=== PATIENT | male | born 1995 | race Caucasian/White ===

== ENCOUNTER 2018-02-09 12:43 | Emergency (ER) | payer OTHER ==
[~2018-02-09] VITALS: Ht 177.8 cm; Wt 68.0 kg
[~2018-02-09 12:43] MED LIST: ALPRAZOLAM2 MG; NOHOMEMEDICATIONS; PENICILLIN VK500 M1 PO; PREDNISONE 10 M10 MG PO; ZOFRAN4 MG PO
[2018-02-09] MEDS ORDERED: IBU600 MG PO (12:59)
[2018-02-09] MEDS ORDERED: PENICILLIN VK500 M1 PO (12:59)
[2018-02-09 13:08] VITALS: BP 123/76
== END 2018-02-09 13:09 | disposition home or self-care (01) ==
LOC: M.ERS 12:43
DX: K04.7 Periapical abscess without sinus (principal); F41.9 Anxiety disorder, unspecified; F32.9 Major depressive disorder, single episode, unspecified; Z88.1 Allergy status to other antibiotic agents; Z88.2 Allergy status to sulfonamides

== ENCOUNTER 2018-02-11 05:49 | Emergency (ER) | payer OTHER ==
[~2018-02-11] VITALS: Ht 182.9 cm; Wt 68.0 kg
[~2018-02-11 05:49] MED LIST changes: +IBU600 MG PO
[2018-02-11 07:04] LABS: CALCIUM 9.4 mg/dL (8.5-10.1); POTASSIUM 3.8 mmol/L (3.5-5.1)
[2018-02-11 07:09] LABS: ALBUMIN 4.2 g/dL (3.4-5.0); TOTAL BILIRUBIN 0.7 mg/dL (<0.1-1.0); TOTAL PROTEIN 8.3 g/dL (6.4-8.2)
[2018-02-11] MEDS ORDERED: NORCO 5-325 TA1 EACH PO (08:36)
[2018-02-11 08:47] VITALS: BP 129/70
== END 2018-02-11 08:49 | disposition home or self-care (01) ==
LOC: M.ERS 05:49
PROVIDERS: Personal Emergency Response Attendant
DX: K04.7 Periapical abscess without sinus (principal); F41.9 Anxiety disorder, unspecified; F32.9 Major depressive disorder, single episode, unspecified; Z88.2 Allergy status to sulfonamides; Z88.1 Allergy status to other antibiotic agents; F17.210 Nicotine dependence, cigarettes, uncomplicated

== ENCOUNTER 2018-10-26 20:30 | Emergency (ER) | payer OTHER ==
[~2018-10-26] VITALS: Ht 182.9 cm; Wt 68.0 kg
[~2018-10-26 20:30] MED LIST changes: +NORCO 5-325 TA1 EACH PO
[2018-10-26] MEDS ORDERED: IBUPROFEN 800800 MG PO (21:06)
[2018-10-26] MEDS ORDERED: CYCLOBENZAPRINE10 MG PO (21:06)
[2018-10-26 21:30] VITALS: BP 123/69
== END 2018-10-26 21:25 | disposition home or self-care (01) ==
LOC: M.ERS 20:30
DX: S33.5XXA Sprain of ligaments of lumbar spine, initial encounter (principal); S83.8X1A Sprain of other specified parts of right knee, initial encounter; F17.200 Nicotine dependence, unspecified, uncomplicated; F41.9 Anxiety disorder, unspecified; F32.9 Major depressive disorder, single episode, unspecified; Z88.1 Allergy status to other antibiotic agents; Z88.2 Allergy status to sulfonamides; X50.1XXA Overexertion from prolonged static or awkward postures, initial encounter; Y92.89 Other specified places as the place of occurrence of the external cause; Y93.89 Activity, other specified; Y99.8 Other external cause status

== ENCOUNTER 2018-12-29 02:07 | Emergency (ER) | payer OTHER ==
[~2018-12-29] VITALS: Ht 177.8 cm; Wt 64.0 kg
[~2018-12-29 02:07] MED LIST changes: +CYCLOBENZAPRINE10 MG PO; +IBUPROFEN 800800 MG PO
[2018-12-29 03:09] LABS: ABSOLUTE LYMPHOCYTES 1.9 thou/uL (0.8-5.3); ABSOLUTE MONOCYTES 0.9 thou/uL (0.0-1.2); ABSOLUTE NEUTROPHILS 4.8 thou/uL (1.6-8.1); BASOPHILS 0.5 %; EOSINOPHILS 0.6 %; HEMATOCRIT 45.3 % (42.0-52.0); HEMOGLOBIN 15.6 gm/dL (14.0-18.0); LYMPHOCYTES 24.1 %; MCHC 34.5 g/dL (28.0-37.0); MCV 92.8 fL (80.0-100.0); MONOCYTES 12.3 %; MPV 9.7 fl. (7.2-11.1); NUCLEATED RBCS 0 /100WBC; PLATELET COUNT* 205 thou/uL (150-400); POLYS 62.5 %; RBC 4.88 mil/uL (4.50-6.00); RDW-CV 13.7 % (10.5-14.5); WBC 7.7 thou/uL (4.0-11.0)
[2018-12-29 03:26] LABS: CALCIUM 9.8 mg/dL (8.5-10.1); POTASSIUM 4.1 mmol/L (3.5-5.1)
[2018-12-29 03:30] LABS: ALBUMIN 4.5 g/dL (3.4-5.0); TOTAL BILIRUBIN 0.7 mg/dL (<0.1-1.0); TOTAL PROTEIN 7.8 g/dL (6.4-8.2)
[2018-12-29 04:24] LABS: ACETAMINOPHEN < 2 ug/mL (10-30)
[2018-12-29 05:11] LABS: URINE BLOOD NEGATIVE (Negative); URINE CLARITY CLEAR; URINE COLOR YELLOW; URINE GLUCOSE-RANDOM NEGATIVE (Negative); URINE KETONES 1+ (Negative); URINE LEUKOCYTES-REFLEX NEGATIVE (Negative); URINE NITRITE-REFLEX NEGATIVE (Negative); URINE PROTEIN TRACE (Negative); URINE SPECIFIC GRAVITY >= 1.030 (1.005-1.030); URINE UROBILINOGEN 0.2 E.U./dl (0.2-1.0)
[2018-12-29 05:12] LABS: URINE BILIRUBIN 1+ (Negative)
[2018-12-29 05:14] LABS: ICTOTEST (BILI CONFIRMATORY) Negative (Negative)
[2018-12-29 05:16] LABS: AMP/METHAMP POSITIVE (Negative); BARBITURATES Negative (Negative); BENZODIAZEPINES POSITIVE (Negative); COCAINE Negative (Negative); METHADONE Negative (Negative); OPIATES Negative (Negative); PCP Negative (Negative); THC POSITIVE (Negative)
[2018-12-29] MEDS ORDERED: FLAGYL500 M1 PO (07:44)
[2018-12-29] MEDS ORDERED: CIPROFLOXACIN500 M1 PO (07:44)
[2018-12-30 10:29] VITALS: BP 110/71
== END 2018-12-30 10:29 | disposition home or self-care (01) ==
LOC: M.ERS 02:07
PROVIDERS: Emergency Medicine
DX: T42.4X2A Poisoning by benzodiazepines, intentional self-harm, initial encounter (principal); T40.2X2A Poisoning by other opioids, intentional self-harm, initial encounter; F19.10 Other psychoactive substance abuse, uncomplicated; R45.851 Suicidal ideations; F41.9 Anxiety disorder, unspecified; F32.9 Major depressive disorder, single episode, unspecified; Z88.1 Allergy status to other antibiotic agents; Z88.2 Allergy status to sulfonamides; Y92.89 Other specified places as the place of occurrence of the external cause

== ENCOUNTER 2019-01-10 04:59 | Emergency (ER) | payer OTHER ==
[~2019-01-10] VITALS: Ht 180.3 cm; Wt 70.3 kg
[~2019-01-10 04:59] MED LIST changes: +CIPROFLOXACIN500 M1 PO; +FLAGYL500 M1 PO
[2019-01-10 05:49] LABS: ABSOLUTE BASOPHILS 0.1 thou/uL (0.0-0.2); ABSOLUTE EOSINOPHILS 0.2 thou/uL (0.0-0.7); ABSOLUTE LYMPHOCYTES 2.3 thou/uL (0.8-5.3); ABSOLUTE MONOCYTES 0.6 thou/uL (0.0-1.2); ABSOLUTE NEUTROPHILS 3.5 thou/uL (1.6-8.1); BASOPHILS 0.8 %; EOSINOPHILS 3.8 %; HEMATOCRIT 43.7 % (42.0-52.0); HEMOGLOBIN 14.8 gm/dL (14.0-18.0); LYMPHOCYTES 34.3 %; MCH 31.4 pg (26.0-34.0); MCHC 33.9 g/dL (28.0-37.0); MCV 92.8 fL (80.0-100.0); MONOCYTES 8.5 %; MPV 9.4 fl. (7.2-11.1); NUCLEATED RBCS 0 /100WBC; PLATELET COUNT* 190 thou/uL (150-400); POLYS 52.6 %; RBC 4.71 mil/uL (4.50-6.00); RDW-CV 13.4 % (10.5-14.5); URINE BILIRUBIN NEGATIVE (Negative); URINE BLOOD NEGATIVE (Negative); URINE CLARITY CLEAR; URINE COLOR STRAW; URINE GLUCOSE-RANDOM NEGATIVE (Negative); URINE KETONES NEGATIVE (Negative); URINE LEUKOCYTES NEGATIVE (Negative); URINE NITRITE NEGATIVE (Negative); URINE PROTEIN NEGATIVE (Negative); URINE SPECIFIC GRAVITY <= 1.005 (1.005-1.030); URINE UROBILINOGEN 0.2 E.U./dl (0.2-1.0); WBC 6.6 thou/uL (4.0-11.0)
[2019-01-10 06:00] LABS: CALCIUM 8.7 mg/dL (8.5-10.1); CREATININE 0.9 mg/dL (0.6-1.3); POTASSIUM 3.9 mmol/L (3.5-5.1)
[2019-01-10 06:04] LABS: ALBUMIN 4.3 g/dL (3.4-5.0); ALCOHOL 202 mg/dL (<10); TOTAL BILIRUBIN 0.3 mg/dL (<0.1-1.0); TOTAL PROTEIN 7.7 g/dL (6.4-8.2)
[2019-01-10 06:07] LABS: ACETAMINOPHEN < 2 ug/mL (10-30)
[2019-01-10 06:47] LABS: AMP/METHAMP Negative (Negative); BARBITURATES Negative (Negative); BENZODIAZEPINES Negative (Negative); COCAINE Negative (Negative); METHADONE Negative (Negative); OPIATES Negative (Negative); PCP Negative (Negative); THC POSITIVE (Negative)
[2019-01-11 08:07] VITALS: BP 112/54
== END 2019-01-11 08:07 | disposition short-term general hospital (02) ==
LOC: M.ERS 04:59
PROVIDERS: Emergency Medicine
DX: F32.9 Major depressive disorder, single episode, unspecified (principal); R45.851 Suicidal ideations; F41.9 Anxiety disorder, unspecified; F17.210 Nicotine dependence, cigarettes, uncomplicated; Z88.1 Allergy status to other antibiotic agents; Z88.2 Allergy status to sulfonamides